=== PATIENT | female | born 1995 | race Caucasian/White ===

== ENCOUNTER 2017-02-04 20:53 | Emergency (ER) | payer SELFPAY ==
[2017-02-04 21:09] VITALS: TEMP 97.5; BMI 20.5
--- NOTE | 2017-02-04 21:10 | PDOC ---
Rapid Medical Evaluation Chief Complaint: Pain, Acute Time Seen by Provider: 02/04/17 21:07 Medical Evaluation: Allergies Allergy/AdvReac Type Severity Reaction Status Date / Time No Known Allergies Allergy Verified 08/18/13 22:47 02/04/17 21:07 I have performed a brief in-person evaluation of this patient. The Patient presents with a chief complaint of pressure in the back of her neck and palpitations since drinking C4 pre workout supplement(150mg of caffeine) and working out in the gym. States no chest pain or dizziness. Pertinent physical exam findings are: NAD unlabored breathing lungs clear heart rate 100-120's I have ordered the following: ekg The patient will proceed to the ED for further evaluation.
[2017-02-04] MEDS ORDERED: SODIUM CHLORIDE 0.9% 500 ML INFUS.BAG IV ONE (22:07)
[2017-02-04 22:30] LABS: BASOPHIL 0.5 % (0-2.0); EOSINOPHIL 0.5 % (0-4.5); MCH 28.8 pg (25.7-33.7); MCHC 32.5 g/dl (32.0-36.0); MEAN CELL VOLUME 88.6 fl (80-96); MEAN PLT VOLUME 8.5 fl (7.5-11.1); NEUTROPHILS 77.1 % (42.8-82.8); PLATELET COUNT 237 K/MM3 (134-434); RDW 13.2 % (11.6-15.6); WHITE BLOOD COUNT 11.2 K/mm3 (4.0-10.0)
--- NOTE | 2017-02-04 22:30 | PDOC ---
History of Present Illness - General History Source: Patient Exam Limitations: No Limitations - History of Present Illness Initial Comments: 02/04/17 22:33 Patient is a 22 year old female with no significant past medical history who presents to the ED with complaints of dizziness that began this afternoon at 3 pm. Patient reports experiencing dizziness since 3 pm today while on her way to the gym with no signs of subsiding. She reports taking pre workout powder mix before experiencing dizziness. Patient reports experiencing intermittent episodes of chills, Fatigue and pressure behind her head secondary to dizziness. Patient states she is currently on day 1 of her menstrual period and states she usually does not feel this way when on her period. Denies SOB, Chest pain. Denies nausea, vomiting. Denies out of state travel, contact with sick individuals. Denies any other symptoms. Allergies: None Social history: No smoking. No alcohol. No illicit drugs. Surgical history: None PMD: None <Dino Galvin - Last Filed: 02/04/17 22:32> <Taylor Tan - Last Filed: 02/04/17 23:47> - General Chief Complaint: Pain, Acute Stated Complaint: FATIGUE Time Seen by Provider: 02/04/17 21:07 Past History <Dino Galvin - Last Filed: 02/04/17 22:32> - Past Medical History Asthma: No Cancer: No Cardiac Disorders: No Diabetes: No HTN: No Seizures: No Thyroid Disease: No - Immunization History Immunization Up to Date: Yes - Suicide/Smoking/Psychosocial Hx Smoking Status: No Smoking History: Never smoked Have you smoked in the past 12 months: No Number of Cigarettes Smoked Daily: 0 Information on smoking cessation initiated: No Hx Alcohol Use: No Drug/Substance Use Hx: No Hx Substance Use Treatment: No <Taylor Tan - Last Filed: 02/04/17 23:47> - Past Medical History Allergies/Adverse Reactions: Allergies Allergy/AdvReac Type Severity Reaction Status Date / Time No Known Allergies Allergy Verified 02/04/17 22:55 Home Medications: Ambulatory Orders NK [No Known Home Medication] 02/04/17 Review of Systems - Review of Systems Able to Perform ROS?: Yes Comments:: 02/04/17 22:32 GENERAL/CONSTITUTIONAL: +Fatigue. +Chills No fever HEAD, EYES, EARS, NOSE AND THROAT: No change in vision. No ear pain or discharge. No sore throat. CARDIOVASCULAR: No chest pain or shortness of breath. RESPIRATORY: No cough, wheezing, or hemoptysis. GASTROINTESTINAL: No nausea, vomiting, diarrhea or constipation. GENITOURINARY: No dysuria, frequency, or change in urination. MUSCULOSKELETAL: No joint or muscle swelling or pain. No neck or back pain. SKIN: No rash NEUROLOGIC: No headache, vertigo, loss of consciousness, or change in strength/ sensation. ENDOCRINE: No increased thirst. No abnormal weight change. HEMATOLOGIC/LYMPHATIC: No anemia, easy bleeding, or history of blood clots. ALLERGIC/IMMUNOLOGIC: No hives or skin allergy. All Other Systems: Reviewed and Negative <Dino Galvin - Last Filed: 02/04/17 22:32> *Physical Exam - Vital Signs Last Vital Signs Temp Pulse Resp BP Pulse Ox 97.5 F L 101 H 20 132/79 97 02/04/17 21:05 02/04/17 21:05 02/04/17 21:05 02/04/17 21:05 02/04/17 21:05 - Physical Exam Comments: 02/04/17 22:32 GENERAL: Awake, alert, and fully oriented, in no acute distress HEAD: No signs of trauma EYES: PERRLA, EOMI, sclera anicteric, conjunctiva clear ENT: Auricles normal inspection, hearing grossly normal, nares patent, oropharynx clear without exudates. Moist mucosa NECK: Normal ROM, supple, no lymphadenopathy, JVD, or masses LUNGS: Breath sounds equal, clear to auscultation bilaterally. No wheezes, and no crackles HEART: Regular rate and rhythm, normal S1 and S2, no murmurs, rubs or gallops ABDOMEN: Soft, nontender, normoactive bowel sounds. No guarding, no rebound. No masses EXTREMITIES: Normal range of motion, no edema. No clubbing or cyanosis. No cords, erythema, or tenderness NEUROLOGICAL: Cranial nerves II through XII grossly intact. Normal speech, SKIN: Warm, Dry, normal turgor, no rashes or lesions noted. <Dino Galvin - Last Filed: 02/04/17 22:32> - Vital Signs Last Vital Signs Temp Pulse Resp BP Pulse Ox 97.5 F L 101 H 20 132/79 97 02/04/17 21:05 02/04/17 21:05 02/04/17 21:05 02/04/17 21:05 02/04/17 21:05 <Taylor Tan - Last Filed: 02/04/17 23:47> ED Treatment Course - LABORATORY CBC & Chemistry Diagram: 02/04/17 22:20 02/04/17 22:20 - ADDITIONAL ORDERS Additional order review: 02/04/17 22:20 RBC 4.55 MCV 88.6 MCHC 32.5 RDW 13.2 D MPV 8.5 Neutrophils % 77.1 D Lymphocytes % 18.3 D Monocytes % 3.6 L Eosinophils % 0.5 D Basophils % 0.5 - Medications Given in the ED: ED Medications Discontinued Medications Generic Name Dose Route Start Last Admin Trade Name Freq PRN Reason Stop Dose Admin Oxycodone/Acetaminophen 2 combo 02/04/17 21:45 02/04/17 21:56 Percocet 5/325 - PO 02/04/17 21:46 2 combo ONCE ONE Administration Sodium Chloride 1,000 ml 02/04/17 22:07 02/04/17 22:24 Normal Saline - IV 02/04/17 22:08 1,000 ml ONCE ONE Administration <Dino Galvin - Last Filed: 02/04/17 22:32> - LABORATORY CBC & Chemistry Diagram: 02/04/17 22:20 02/04/17 22:20 - Medications Given in the ED: ED Medications Discontinued Medications Generic Name Dose Route Start Last Admin Trade Name Freq PRN Reason Stop Dose Admin Oxycodone/Acetaminophen 2 combo 02/04/17 21:45 02/04/17 21:56 Percocet 5/325 - PO 02/04/17 21:46 2 combo ONCE ONE Administration Sodium Chloride 1,000 ml 02/04/17 22:07 02/04/17 22:24 Normal Saline - IV 02/04/17 22:08 1,000 ml ONCE ONE Administration <Taylor Tan - Last Filed: 02/04/17 23:47> Medical Decision Making - Medical Decision Making 02/04/17 23:42 Pt drank C4 caffeinated beverage today at 3PM and she still feels "funny"; States that always drinks C4. Drank no other caffeinated drinks today. She ate bread for breakfast, rice and beans for lunch. No dinner. She is dry. She will be treated with saline bolus. 02/04/17 23:44 Labs normal, except for ketones in the urine. Exam is normal. Neurologically completely intact. No nystagmus. Not . EKG:RBBB; <Taylor Tan - Last Filed: 02/04/17 23:47> *DC/Admit/Observation/Transfer - Attestations Scribe Attestion: 02/04/17 22:34 Documentation prepared by Dino Galvin, acting as medical education manager for Taylor Tan MD/DO. <Dino Galvin - Last Filed: 02/04/17 22:32> - Discharge Dispostion Admit: No <Taylor Tan - Last Filed: 02/04/17 23:47> Diagnosis at time of Disposition: Caffeine intoxication - Discharge Dispostion Disposition: HOME Condition at time of disposition: Stable - Referrals Referrals: Bert Ramirez MD [Staff Physician] - - Patient Instructions Printed Discharge Instructions: Decreasing Your Caffeine Intake, The Highs and Lows of Caffeine
[2017-02-04 22:33] LABS: URINE APPEARANCE CLEAR; URINE BILIRUBIN NEGATIVE (NEGATIVE); URINE BLOOD 1+ (NEGATIVE); URINE COLOR STRAW; URINE GLUCOSE (UA) NEGATIVE (NEGATIVE); URINE KETONE 1+ (NEGATIVE); URINE NITRITE NEGATIVE (NEGATIVE); URINE PROTEIN NEGATIVE (NEGATIVE); URINE UROBILINOGEN NEGATIVE mg/dL (0.2-1.0)
[2017-02-04 22:34] LABS: URINE BACTERIA RARE /hpf (NONE SEEN); URINE RBC < 1; URINE WBC 1
[2017-02-04 23:05] LABS: ALBUMIN 4.5 g/dl (3.4-5.0); ALK PHOS 98 U/L (45-117); AMYLASE 56 U/L (25-115); ANION GAP 13 (8-16); CALCIUM 8.6 mg/dL (8.5-10.1); CO2 22 mmol/L (21-32); CREATININE 0.8 mg/dL (0.55-1.02); GLUCOSE,RANDOM 94 mg/dL (74-106); SGOT/AST 17 U/L (15-37); SGPT/ALT 22 U/L (12-78); TOT PROT 8.2 g/dl (6.4-8.2)
[2017-02-04 23:36] VITALS: BP 117/68; PULSE 90
[2017-02-05 12:32] LABS: URINE LEUK ESTERASE TRACE (NEGATIVE)
--- NOTE | 2017-02-05 12:42 | EKG ---
Test Reason : Blood Pressure : / mmHG Vent. Rate : 065 BPM Atrial Rate : 065 BPM P-R Int : 132 ms QRS Dur : 102 ms QT Int : 420 ms P-R-T Axes : 029 061 066 degrees QTc Int : 436 ms NORMAL SINUS RHYTHM BASELINE ARTIFACT INCOMPLETE RIGHT BUNDLE BRANCH BLOCK BORDERLINE ECG WHEN COMPARED WITH ECG OF 09-JAN-2013 01:01, NO SIGNIFICANT CHANGE WAS FOUND REPEAT EKG IF CLINICALLY INDICATED Confirmed by JOSHUA SAWYER MD ([id number] on 02/05/2017 12:42:42 PM Referred By: Confirmed By:JOSHUA SAWYER MD
== END 2017-02-04 23:38 | disposition home or self-care (01) ==
LOC: JER 20:53
DX: R11.2 Nausea with vomiting, unspecified (principal)
CPT/HCPCS: 36415; 80053; 81003; 81015; 82150; 83690; 84703; 85025; 93005; 93010; 99282-25

== ENCOUNTER 2020-05-12 23:28 | Emergency (ER) | payer OTHER ==
[2020-05-12 23:37] VITALS: TEMP 99.2; BMI 20.9
[2020-05-12] MEDS ORDERED: ACETAMINOPHEN 1000 MG/100 ML VIAL (NON FORMULARY) IVPB ONE (23:54)
[2020-05-12] MEDS ORDERED: SODIUM CHLORIDE 1,000 ML IV STA (23:54)
[2020-05-13 00:33] LABS: BASO % 0.7 % (0-2.0); EOS % 3.8 % (0-4.5); HEMATOCRIT 38.8 % (32.4-45.2); HEMOGLOBIN 12.8 GM/dL (10.7-15.3); LYMPH % 31.1 % (8-40); MCH 29.6 pg (25.7-33.7); MCHC 32.9 g/dl (32.0-36.0); MEAN CELL VOLUME 90.1 fl (80-96); MEAN PLT VOLUME 8.4 fl (7.5-11.1); MONO % 10.4 % (3.8-10.2); PLATELET COUNT 213 K/MM3 (134-434); RBC 4.31 M/mm3 (3.60-5.2); RDW 13.4 % (11.6-15.6); WHITE BLOOD COUNT 6.7 K/mm3 (4.0-10.0)
[2020-05-13 00:34] LABS: URINE APPEARANCE CLEAR; URINE BILIRUBIN NEGATIVE (NEGATIVE); URINE COLOR YELLOW; URINE GLUCOSE (UA) NEGATIVE (NEGATIVE); URINE KETONE NEGATIVE (NEGATIVE); URINE LEUK ESTERASE NEGATIVE (NEGATIVE); URINE NITRITE NEGATIVE (NEGATIVE); URINE PROTEIN NEGATIVE (NEGATIVE); URINE UROBILINOGEN 0.2 mg/dL (0.2-1.0)
[2020-05-13 02:55] LABS: CHLORIDE 107 mmol/L (98-107); POTASSIUM 4.3 mmol/L (3.5-5.1); SODIUM 139 mmol/L (136-145)
[2020-05-13 02:57] LABS: CALCIUM 8.6 mg/dL (8.5-10.1)
[2020-05-13 02:58] LABS: ALBUMIN 3.7 g/dl (3.4-5.0); ANION GAP 10 MMOL/L (8-16); BLOOD UREA NITROGEN 25.2 mg/dL (7-18); CO2 22 mmol/L (21-32); GLUCOSE,RANDOM 78 mg/dL (74-106); MAGNESIUM 2.2 mg/dL (1.8-2.4)
[2020-05-13 03:00] LABS: CREATININE 0.7 mg/dL (0.55-1.3); PHOSPHOROUS 3.5 mg/dL (2.5-4.9); SGOT/AST 31 U/L (15-37); SGPT/ALT 34 U/L (13-61)
[2020-05-13 03:02] LABS: BILIRUBIN,TOTAL 0.5 mg/dL (0.2-1)
[2020-05-13 03:03] LABS: TOT PROT 7.1 g/dl (6.4-8.2)
[2020-05-13 03:04] LABS: ALK PHOS 84 U/L (45-117)
[2020-05-13 04:03] VITALS: BP 101/47; PULSE 64
== END 2020-05-13 04:03 | disposition home or self-care (01) ==
LOC: JER 23:28
PROC: 3E0337Z Introduction of Electrolytic and Water Balance Substance into Peripheral Vein, Percutaneous Approach (ICD-10-PCS; principal; 2020-05-12)
DX: R55 Syncope and collapse (principal)
CPT/HCPCS: 36415; 71046-TC-FY; 73030-TC-LT-FY; 80053; 81003; 82550; 83735; 83880; 84100; 84484; 84703; 85025; 87086; 93005; 93010; 99285-25